=== PATIENT | male | born 1960 | race Caucasian/White ===

== ENCOUNTER → 2017-08-26 | Outpatient (CLI) | payer OTHER | LOC: BMCIMAGING 16:44 | PROVIDERS: ATTEND Internal Medicine | DX: R05 Cough (principal) ==

== ENCOUNTER → 2017-11-14 | Outpatient (CLI) | payer OTHER | LOC: FIMAGING 08:14 | PROVIDERS: ATTEND Internal Medicine Pulmonary Disease | DX: R05 Cough (principal); K22.4 Dyskinesia of esophagus ==

== ENCOUNTER → 2019-04-06 | Outpatient (CLI) | payer OTHER | LOC: FIMAGING 14:07 | PROVIDERS: ATTEND Internal Medicine Pulmonary Disease | DX: R05 Cough (principal); R06.83 Snoring ==

== ENCOUNTER 2019-04-08 12:40 | Day surgery (SDC) | payer OTHER ==
[2019-04-08] MEDS ORDERED: LR 1,000 ML IV ONE (13:25)
[2019-04-08] MEDS ORDERED: ALBUTEROL 3 ML DEYVIAL IH ONE (13:25)
[2019-04-08] MEDS ORDERED: BENZOCAINE UNIT DOSE SPRAY HURRICAINE MM ONE (13:32)
[2019-04-08] MEDS ORDERED: MIDAZOLAM 2 MG/2 ML VIAL ONE (13:32)
[2019-04-08] MEDS ORDERED: fentaNYL 100 MCG/2 ML INJ ONE (13:33)
[2019-04-08] MEDS ORDERED: LIDOCAINE 1% 300 MG/30 ML SDV ONE (13:35)
[2019-04-08] MEDS ORDERED: LIDOCAINE 2% JELLY 6 ML TOPICAL SYR ONE (13:35)
--- NOTE | 2019-04-08 14:13 | PDHPUP ---
History & Physical Update H&P update statement: This history and physical update is based on an assessment of the patient which was completed after admission or registration (within 24 hours), but prior to the surgery/procedure. H&P update: H&P reviewed & patient examined, no change in patient's condition since H&P completed
--- NOTE | 2019-04-08 14:14 | PDPROPOC ---
Sedation Plan of Care Sedation Plan of Care: vital signs stable, mental status noted, patient educated of risks, benefits, alternatives, patient can tolerate sedation ASA Classification: ASA 2 Planned drugs: fentanyl, midazolam Mallampati Score: Class 2 Mallampati Reference Image: Patient passed 3-3-2 rule?: Yes
[2019-04-08 16:31] VITALS: BP 132/98
--- NOTE | 2019-04-08 17:46 | GPN ---
[f rep st] PROCEDURE NOTE DATE OF PROCEDURE: 04/08/2019 PROCEDURE: Bronchoscopy. REASON FOR BRONCHOSCOPY: Chronic cough, with a sensation of an irritative lesion, which generates th e cough in the low throat/high thorax. DESCRIPTION OF PROCEDURE: The procedure was done in the endoscopy unit. Informed consent was obtain ed from the patient. Appropriate time-out was performed. Approximately 5 cc of 4% lidocaine was use d to anesthetize the posterior oropharynx and 15 cc of 1% lidocaine used to anesthetize the vocal cor ds and lower tracheobronchial tree. 3 mg of Versed and 75 mcg of fentanyl were given intravenously f or conscious sedation. The bronchoscope was passed via a bite block orally into the larynx. The vocal cords were identified . Vocal cords moved well with respiration and with cough. The larynx/hypopharynx was evaluated. Th ere were no was no significant asymmetry. No lesions were identified. Lymphoid tissue anterior to t he epiglottis and above appeared to be slightly prominent, but not necessarily abnormal. No masses w ere present. The bronchoscope was advanced through the vocal cords and into the trachea. The upper trachea appeared normal. There were no polyps, no lesions. The bronchoscope was briefly passed into the lower tracheobronchial tree bilaterally. Secretions were minimal. Anatomy was normal at least to the segmental level. No samples were obtained. ASSESSMENT: 1. Normal larynx and upper trachea, with description as noted above. 2. No anatomical lesion identified that would possibly contribute to the patient's cough. /[id number]/MODL
== END 2019-04-08 16:31 | disposition home or self-care (01) ==
LOC: FSGY 12:40
PROVIDERS: ATTEND Internal Medicine Pulmonary Disease
PROC: 0BJ08ZZ Inspection of Tracheobronchial Tree, Via Natural or Artificial Opening Endoscopic (ICD-10-PCS; principal; 2019-04-08 14:00)
DX: R05 Cough (principal); R06.83 Snoring
CPT/HCPCS: J2250; J3010; J7613